=== PATIENT | female | born 1980 | race Caucasian/White ===

== ENCOUNTER 2022-10-31 05:42 | Outpatient (CLI) | payer OTHER ==
[~2022-10-31] VITALS: Ht 160.6 cm; Wt 68.0 kg
[2022-11-01] MEDS ORDERED: SERT-414 PO (11:57)
== END 2022-11-01 12:36 | disposition home or self-care (01) ==
LOC: PREOP 05:42
PROVIDERS: ATTEND Obstetrics & Gynecology
DX: Z01.818 Encounter for other preprocedural examination (principal)

== ENCOUNTER → 2023-02-12 | Outpatient (CLI) | payer OTHER ==
[~2023-02-12] MED LIST: SERT-414 PO
--- NOTE | 2023-02-12 12:20 | Diagnostic Imaging Report ---
INDICATION: anatomy survey TECHNIQUE: Multiple real-time grayscale images were obtained over the gravid uterus. COMPARISON: None FINDINGS: Single live intrauterine is in cephalic presentation. Placenta is posterior position. Cervix measures approximately 4 cm in length. The tip of the placenta is less than 1 cm from the internal cervical os but does not appear to cover it. The amount of amniotic fluid appears visually appropriate. Following structures are visualized and normal: Stomach, four-chamber heart, cerebral ventricles, cerebellum, cisterna magna, kidneys, umbilical cord insertion, urinary bladder, spine, bilateral lower extremities, left ventricular outflow tract, right ventricular outflow tract. Biometrical measurements are as follows: Biparietal 4.64 cm, age 20 weeks 1 days. Head circumference 17.09 cm, age 19 weeks 5 days. Abdominal circumference 13.66 cm, age 19 weeks 1 days. Femur length 3.19 cm, age 20 weeks 0 days. Sonographic estimate age: 19 weeks 6 days. Sonographic estimated date of delivery: 07/03/2023. Estimated Weight: 298 gm (+/- 44 gm). LMP percentile: 35%. heart rate: 136 beats per minute. number: 1 of 1. IMPRESSION: 1. Single live intrauterine has normal anatomy survey. 2. Low-lying placenta. Consider follow-up ultrasound to assess if this persists further into . Dictated by: Dictated on workstation # [id number]
== END ==
LOC: RAD 09:36
PROVIDERS: ATTEND Nurse Practitioner Women's Health
DX: Z34.92 Encounter for supervision of normal pregnancy, unspecified, second trimester (principal); Z3A.19 19 weeks gestation of pregnancy
CPT/HCPCS: 76805

== ENCOUNTER 2023-04-23 00:12 | Emergency (ER) | payer OTHER ==
[~2023-04-23] VITALS: Ht 160 cm; Wt 74.8 kg
[2023-04-23 00:28] VITALS: BP 131/70
--- NOTE | 2023-04-23 02:12 | ED Lower Extremity ---
General Chief Complaint: Lower Extremity Stated Complaint: RIGHT FOOT INJURY Nursing Triage Note: PT TO FT1 BY WC WITH CC OF R ANKLE PAIN. PT STATES WAS ON STEP STOOL WHEN SHE FELL AND TWISTED HER ANKLE AT APPROX 2330. PT DENIES OTHER INJURY. PT STATES IS 29 WEEKS . PT DENIES ABD PAIN Source: patient Exam Limitations: no limitations History of Present Illness Date Seen by Provider: Apr 23, 2023 Time Seen by Provider: 01:20 Initial Comments Here with complaint of right ankle pain after falling on a small step ladder and twisting her ankle outwards. She is approximately 29 weeks . She did not fall and hurt anything else other than her ankle. She is worried due to swelling especially on the lateral aspect of some pain on the medial aspect as well. Has not taken anything for the pain due to concerns with . She states that she can do landed on her left side but did not have any pain and there is no vaginal bleeding or gush of fluid. She is not having any abdominal pain and she is feeling the baby moving. Onset: this evening Pain/Injury Location: right ankle Method of Injury: twisted Modifying Factors: Improves With Immobilization; Worse With Movement Allergies and Home Medications Allergies Coded Allergies: No Known Drug Allergies (Verified , 11/01/22) Patient Home Medication List Home Medication List Reviewed: Yes Sertraline HCl (Sertraline HCl) 100 Mg Tablet, 100 MG PO DAILY, (Reported) Entered as Reported by: Gill Melvin on 11/01/22 [id number] Review of Systems Constitutional: see HPI; No chills, No fever Gastrointestinal: No abdominal pain Genitourinary: no symptoms reported : Yes Musculoskeletal: joint pain, joint swelling Skin: change in color; No lesions Psychiatric/Neurological: No Symptoms Reported Past Xiaqkqu-Eftqie-Gsndkw Hx Patient Social History Tobacco Use?: No Substance use?: No Alcohol Use?: No Immunizations Up To Date Tetanus Booster (TDap): Less than 5yrs First/Initial COVID19 Vaccinat: 04/05 Second COVID19 Vaccination Florentin: 05/05 Third COVID19 Vaccination Date: 04/05 Seasonal Allergies Seasonal Allergies: No Past Medical History Surgeries: Yes Section Respiratory: No Cardiac: No Neurological: No Genitourinary: No Gastrointestinal: No Musculoskeletal: No Endocrine: No HEENT: No Loss of Vision: Denies Hearing Impairment: Denies Cancer: No Psychosocial: Yes Anxiety, Depression Integumentary: No Blood Disorders: No Adverse Reaction/Blood Tranf: No Family Medical History Reviewed Nursing Family Hx Physical Exam Vital Signs Vital Signs - First Documented 04/23/23 00:28 Temp 36.9 Pulse 104 Resp 16 B/P (MAP) 131/70 (90) Pulse Ox 100 O2 Delivery Room Air Capillary Refill : Less Than 3 Seconds Height, Weight, BMI Height: '" Weight: lbs. oz. kg; 29.00 BMI Method: General Appearance: WD/WN, no apparent distress Cardiovascular: regular rate, rhythm, no murmur Respiratory: lungs clear, normal breath sounds Gastrointestinal: non tender, soft, other (Gravid) Ankles: right ankle pain, right ankle soft tissue tenderness, right ankle swelling, right ankle other (Lateral swelling greater than medial with ecchymosis noted on the lateral aspect) Neurologic/Psychiatric: alert, oriented x 3 Skin: warm/dry, ecchymosis (As noted above) Progress/Results/Core Measures Results/Orders My Orders Orders - ELSIE HUNT MD Ankle, Right, 3 Views (04/23/23 01:22) Vital Signs/I&O 04/23/23 00:28 Temp 36.9 Pulse 104 Resp 16 B/P (MAP) 131/70 (90) Pulse Ox 100 O2 Delivery Room Air Blood Pressure Mean: 90 Progress Progress Note : Progress Note Seen and evaluated. X-ray right ankle ordered. Patient is . She denies abdominal pain, vaginal bleeding or gush of fluid. She has felt baby move. heart tones by nursing are normal. Offered monitoring but she declined. X-ray does show distal ulnar styloid and radial styloid fracture to the right ankle but mortise appears intact. 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 Distal pulses intact afterwards. We are using ice packs to area of concern. She will get crutches locally. I did instruct her to follow-up with Dr. Velásquez for recheck and further evaluation and possible casting or other therapy as indicated. She will call his office in the morning. Discharged home with return precautions. Patient verbalized understanding of instructions and agreement with plan. Instructed return if she is having any abdominal pain, vaginal bleeding or gush of fluid. Diagnostic Imaging Diagonstic Imaging: Xray Plain Films/CT/US/NM/MRI: ankle Comments Distal tibia and fibula fracture at the styloids with mortise intact on my interpretation Reviewed: Reviewed by Me Departure Impression Primary Impression: Fracture of right ankle Qualified Codes: S82.891A - Other fracture of right lower leg, initial encounter for closed fracture Disposition: 01 HOME, SELF-CARE Condition: Stable Departure-Patient Inst. Decision time for Depature: 02:09 Referrals: FOSTER VELÁSQUEZ MD, MAYRA L APRN (PCP) Primary Care Physician Patient Instructions: Ankle Fracture (DC) Add. Discharge Instructions: All discharge instructions reviewed with patient and/or family. Voiced understanding. You may take Tylenol/acetaminophen 1000 mg every 6-8 hours as needed for pain but limit this due to your . Use ice packs to area of concern 20 minutes/h to reduce swelling. Elevate foot and ankle to reduce swelling. Call Dr. Velásquez's office in the morning for recheck and further evaluation. Let them know that you were seen in the emergency department and you have ankle fracture of both the distal tibia and fibula and it is splinted. Return for worse pain, swelling, weakness, numbness or other concerns as needed. You may purchase crutches locally through [employer] or other local medical supply offices. Do not put weight on the ankle or splint. Work/School Note: Work Release Form Date Seen in the Emergency Department: Apr 23, 2023 Return to Work: Apr 24, 2023 Restrictions: Need Release from Doctor Other Restrictions Listed Below: Need work release from orthopedics Copy Copies To 1: FOSTER VELÁSQUEZ MD, TIMOTHY D MD Apr 23, 2023 02:12
--- NOTE | 2023-04-23 06:43 | Diagnostic Imaging Report ---
INDICATION: Fall with right ankle injury and pain. AP, oblique and lateral views of the right ankle reveal slightly comminuted and minimally displaced bimalleolar fracture of the right ankle. Ankle mortise appears to be intact. There is lucency at the base of 5th metatarsal with may represent an additional nondisplaced fracture. IMPRESSION: Mildly displaced intra-articular bimalleolar ankle fracture without significant malalignment of tibia and talus. In addition there is a probable nondisplaced fracture at base of 5th metatarsal. Dictated by: Dictated on workstation # [id number]
[2023-04-26] MEDS ORDERED: ACET325C7 PO (13:18)
[2023-04-26] MEDS ORDERED: PNV-9 PO (13:18)
== END 2023-04-23 02:30 | disposition home or self-care (01) ==
LOC: EDUNIT# 00:12 → ER 00:14
DX: O9A.213 Injury, poisoning and certain other consequences of external causes complicating pregnancy, third trimester (principal); S82.301A Unspecified fracture of lower end of right tibia, initial encounter for closed fracture; S82.831A Other fracture of upper and lower end of right fibula, initial encounter for closed fracture; Z3A.39 39 weeks gestation of pregnancy; W11.XXXA Fall on and from ladder, initial encounter; X50.1XXA Overexertion from prolonged static or awkward postures, initial encounter
CPT/HCPCS: 29515; 73610

== ENCOUNTER → 2023-04-26 | Outpatient (CLI) | payer OTHER ==
[~2023-04-26] VITALS: Ht 160.2 cm; Wt 77.3 kg
[~2023-04-26] MED LIST changes: +ACET325C7 PO; +PNV-9 PO
== END | disposition home or self-care (01) ==
LOC: PREOP 12:09
PROVIDERS: ATTEND Orthopaedic Surgery
DX: Z01.818 Encounter for other preprocedural examination (principal)

== ENCOUNTER → 2023-04-26 | Outpatient (CLI) | payer OTHER | LOC: ORTHO 10:01 | PROVIDERS: ATTEND Orthopaedic Surgery | DX: S82.841A Displaced bimalleolar fracture of right lower leg, initial encounter for closed fracture (principal); X58.XXXA Exposure to other specified factors, initial encounter | CPT/HCPCS: 99203 ==

== ENCOUNTER 2023-04-30 09:48 | Day surgery (SDC) | payer OTHER ==
[2023-04-30] VITALS (11 sets, daily range): BP systolic 109–120; BP diastolic 62–80
[~2023-04-30] VITALS: Ht 160.2 cm; Wt 77.3 kg
[2023-04-30] MEDS ORDERED: ceFAZolin INJECTION 2,000 MG in NS (IVPB) 50 ML 50 ML IV ONE (10:00)
[2023-04-30] MEDS ORDERED: LACTATED RINGERS 1,000 ML 1,000 ML IV PRN (10:00)
[2023-04-30] MEDS ORDERED: BUPIVACAINE 0.25% 30 ML VIAL ONE (10:22)
[2023-04-30 10:45] LABS: HEMATOCRIT 34 % (35-52); HEMOGLOBIN 11.1 g/dL (11.5-16.0); MEAN CORPUSCULAR HEMOGLOBIN 30 pg (25-34); MEAN CORPUSCULAR HGB CONC 32 g/dL (32-36); MEAN CORPUSCULAR VOLUME 92 fL (80-99); MEAN PLATELET VOLUME 9.6 fL (9.0-12.2); PLATELET COUNT 284 10^3/uL (130-400); WHITE BLOOD COUNT 15.8 10^3/uL (4.3-11.0)
[2023-04-30] MEDS ORDERED: fentaNYL INJECTION 100 MCG/2 ML VIAL ONE (10:56)
--- NOTE | 2023-04-30 11:26 | Progress Note-Pre Operative ---
Pre-Operative Progress Note Date of Available H&P: Apr 26, 2023 Date H&P Reviewed: Apr 30, 2023 Time H&P Reviewed: 11:20 History & Physical: H&P Reviewed, Patient Examed, No changes noted Pre-Operative Diagnosis: Right Bimalleolar Ankle Fracture FOSTER HOYT MD Apr 30, 2023 11:26
[2023-04-30] MEDS ORDERED: ONDANSETRON INJECTION 4 MG/2 ML (SDV) ONE (11:55)
[2023-04-30] MEDS ORDERED: BUPIVACAINE 0.5% 30 ML VIAL ONE (12:02)
--- NOTE | 2023-04-30 13:40 | Operative Report - Ortho ---
Operative Report Surgeon (s)/Medical Assistant Per Diem (s) Surgeon FOSTER HOYT MD Medical Assistant Per Diem n/a Pre-Operative Diagnosis Right Bimalleolar Ankle Fracture Post-Operative Diagnosis same Operative Report Date of Procedure: Apr 30, 2023 Name of Procedure Performed: Open Reduction and Internal Fixation of Right Bimalleolar Ankle Fracture Description & Findings After obtaining informed consent and marking the patient, patient did receive intravenous antibiotics. Taken to the operating room and general anesthesia was induced. Surgical timeout was taken. The right lower extremity was prepped and draped in the usual sterile fashion. Attention was initially turned to the fibula fracture, incision was made centered over the fracture. Dissection was carried down to the fracture and a periosteal elevator was used to expose the fibula proximally and distally. The fracture was provisionally reduced using clamp and K-wire. A [employer] distal fibular plate was selected and placed. A wire was placed distally to position and temporarily hold the plate. A nonlocking screw was placed in the diaphysis of the fibula. A nonlocking screw was then placed distally. C-arm demonstrated good position of the plate with near anatomic reduction of the fracture. Wire through the plate was removed. Locking screws were used to fill the distal holes of the plate. One additional locking screw and one nonlocking screw were placed in the proximal portion of the plate. The distal nonlocking screw was changed for a locking screw. Wires and clamp were removed. C-arm demonstrated appropriate position of the plate an d screws and maintained reduction of the fracture. Attention was turned to the medial side. The fracture site was exposed. [place] was used to mobilize the impacted piece of the joint line and its position was improved. 2 K-wires for 4.0 cannulated screws were placed. The first wire was anterior and just proximal to the joint line and the second wire was posterior and perpendicular to the fracture site. C-arm was used to confirm position of the wires. Hydroset was mixed and placed in the void; it was allowed to set. After drilling the distal cortex, 2 4.0 mm cannulated screws were then placed over the wires; one measured 38 mm and one measured 42 mm and a washer was added to the anterior one for compression purposes. Wires were removed. Final C-arm images were obtained in the AP, mortise, and lateral views and demonstrated appropriate reduction of the fractures and hardware in good position. Images were transferred to PACS. Wounds were irrigated with normal saline. Closed with 0 vicryl, 3-0 vicryl, and 3-0 nylon. Wounds were injected with local anesthetic. Dressed with xeroform, 4x4s, ABD, cast padding, soft roll, posterior splint, and STACEY wrap. Patient tolerated the procedure well and was stable to the recovery room. Anesthesia Type Spinal Estimated Blood Loss minimal Specimen(s) collected/removed None FOSTER HOYT MD Apr 30, 2023 13:40
--- NOTE | 2023-04-30 13:42 | Anesthesia-Regional Post-Op ---
Regional Patient Condition Mental Status: Alert, Oriented x3 Circulation: Same as Pre-Op Headache: Absent Post Op Complications Complications None Follow Up Care/Instructions Patient Instructions None needed. Anesthesia/Patient Condition Patient is doing well, no complaints, stable vital signs, no apparent adverse anesthesia problems. No complications reported per nursing. CLAUDIO MENDOZA CRNA Apr 30, 2023 13:42
[2023-04-30] MEDS ORDERED: morphine INJ 10 MG/ML 1ML (SYR OR VIAL) IVP ONE (13:45)
[2023-04-30] MEDS ORDERED: ONDANSETRON INJECTION 4 MG/2 ML (SDV) IVP PRN (13:45)
[2023-04-30] MEDS ORDERED: ACETAMINOPHEN 325 MG TABLET ONE (16:21)
[2023-04-30] MEDS ORDERED: ACETAMINOPHEN 325 MG TABLET PO ONE (16:30)
--- NOTE | 2023-04-30 19:12 | Diagnostic Imaging Report ---
INDICATION: Right ankle fracture follow-up. IMPRESSION: 75.4 seconds of fluoroscopy was used. Three images were stored during internal fixation of the bimalleolar fracture of the right ankle. Dictated by: Dictated on workstation # [id number]
== END 2023-04-30 17:15 | disposition home or self-care (01) ==
LOC: SDC 09:48
PROVIDERS: ATTEND Orthopaedic Surgery
DX: S82.841A Displaced bimalleolar fracture of right lower leg, initial encounter for closed fracture (principal); W10.8XXA Fall (on) (from) other stairs and steps, initial encounter
CPT/HCPCS: 27814; 76000; 85027; 87081; C1713 ×12; C1769; 36415

== ENCOUNTER → 2023-05-15 | Outpatient (CLI) | payer OTHER | LOC: ORTHO 09:46 | PROVIDERS: ATTEND Orthopaedic Surgery | DX: Z47.89 Encounter for other orthopedic aftercare (principal) ==

== ENCOUNTER → 2023-05-15 | Outpatient (CLI) | payer OTHER | LOC: LABNPT 12:11 | PROVIDERS: ATTEND Nurse Practitioner Women's Health | DX: O13.9 Gestational [pregnancy-induced] hypertension without significant proteinuria, unspecified trimester (principal); Z3A.00 Weeks of gestation of pregnancy not specified | CPT/HCPCS: 82570; 84156 ==

== ENCOUNTER → 2023-06-12 | Outpatient (CLI) | payer OTHER ==
--- NOTE | 2023-06-12 10:41 | Diagnostic Imaging Report ---
INDICATION: Postoperative check. EXAMINATION: Right ankle 06/12/2023 COMPARISON: 04/23/2023 FINDINGS: 3 views of the ankle There has been interval postoperative change with a sideplate and multiple screws along the distal fibula. Threaded screws extend across the medial malleolar fracture. Fractures are in near-anatomic alignment. Some callus formation noted with mild residual lucencies present. Ankle mortise appears intact. There is mild disuse osteopenia with residual soft tissue swelling. A fracture at the base of the 5th metatarsal also noted. IMPRESSION: 1. Postoperative changes uncomplicated in appearance with early changes of healing about the distal tibia and fibula. 2. Stable-appearing 5th metatarsal base fracture. Dictated by: Dictated on workstation # [id number]
== END ==
LOC: ORTHO 08:51
PROVIDERS: ATTEND Orthopaedic Surgery
DX: Z09 Encounter for follow-up examination after completed treatment for conditions other than malignant neoplasm (principal); S92.351D Displaced fracture of fifth metatarsal bone, right foot, subsequent encounter for fracture with routine healing; X58.XXXD Exposure to other specified factors, subsequent encounter
CPT/HCPCS: 73610

== ENCOUNTER 2023-06-20 05:27 | Outpatient (CLI) | payer OTHER ==
[~2023-06-20] VITALS: Ht 160 cm; Wt 93.2 kg
[2023-06-21] MEDS ORDERED: ASPI-999 PO (14:47)
[2023-06-27] MEDS ORDERED: IBUP-844 PO (07:17)
[2023-06-27] MEDS ORDERED: DOCU100C37 PO (07:17)
[2023-06-27] MEDS ORDERED: ACHD5005 PO (07:17)
== END 2023-06-21 15:00 | disposition home or self-care (01) ==
LOC: PREOP 05:27
PROVIDERS: ATTEND Obstetrics & Gynecology
DX: Z01.818 Encounter for other preprocedural examination (principal)